=== PATIENT | female | born 1950 ===

== ENCOUNTER 2018-06-13 01:00 | Observation (INO) | payer MEDICARE, MEDICAID ==
[2018-06-13 01:01] VITALS: BMI 31.1
[2018-06-13] MEDS ORDERED: Ciprofloxacin 400mg/200ml D5W 400 MG/200 ML BAG IVPB STA (01:39)
[2018-06-13] MEDS ORDERED: metroNIDAZOLE 500mg/100ml NS 100 ML IVPB STA (01:40)
--- NOTE | 2018-06-13 02:06 | ED PDOC ---
HPI: Abdomen Time Seen by Provider: 06/13/18 01:07 Chief Complaint (Nursing): Abdominal Pain Chief Complaint (Provider): Abdominal Pain History Per: Patient History/Exam Limitations: no limitations Onset/Duration Of Symptoms: Days (x2) Additional Complaint(s): Patient is a 67 y/o female with history of dementia, anxiety, hypercholesterolemia, HTN, diabetes, who presents to the ED complaining of abdominal pain, onset x2 days ago. Patient states the she went to [facility] and was diagnosed with diverticulitis but she left because she didn't like the care at that location prompting her visit here. Patient describes pain to be located in the left lower quadrant and states its intermittent. She reports that the pain has gotten better since onset and is only mild currently. Patient also reports she had bloody stool on Thursday but no bloody stool today. She denies shortness of breath, chest pain, fever, vomiting. She was given antibiotics for her diagnosis of diverticulitis but she states she is not currently taking any medications. Past Medical History Reviewed: Historical Data, Nursing Documentation, Vital Signs Vital Signs: Last Vital Signs Temp 99.1 F 06/14/18 08:13 Pulse 74 06/14/18 10:01 Resp 18 06/14/18 08:13 BP 163/74 H 06/14/18 10:01 Pulse Ox 95 06/14/18 08:13 - Medical History PMH: Anxiety, Arthritis, Depression, Diabetes (type II), Diverticulitis, Fractures, Graves' Disease, HTN, Hypercholesterolemia Denies: Chronic Kidney Disease - Surgical History Other surgeries: ectopic - Family History Family History: States: Unknown Family Hx - Social History Current smoker - smoking cessation education provided: No Alcohol: None Drugs: Denies - Immunization History Hx Tetanus Toxoid Vaccination: No Hx Influenza Vaccination: No Hx Pneumococcal Vaccination: No - Home Medications Home Medications: Ambulatory Orders Medication Instructions Recorded Acetaminophen/Cod NO 4 1 tab PO Q6H PRN 06/11/18 [Tylenol/Cod 300 mg-60 mg] Dextran 70/Hypromellose 15 ml OP BID 06/11/18 [Artificial Tears Eye Drops] Donepezil HCl [Aricept] 10 mg PO DAILY 06/11/18 Gabapentin 300 mg PO TID 06/11/18 Gabapentin [Neurontin] 800 mg PO HS 06/11/18 metFORMIN [glucOPHAGE] 1,000 mg PO BIDWM 06/11/18 Clonazepam [Klonopin] 0.5 mg PO BID 06/13/18 Lisinopril/Hydrochlorothiazide 1 tab PO DAILY 06/13/18 [Lisinopril-Hctz 20-25 mg Tab] Metoprolol Succinate [Toprol Xl] 50 mg PO DAILY 06/13/18 Polyethylene Glycol/Polyvinyl 1 drop OU PRN PRN 06/13/18 [Artificial Tears] Pravastatin Sodium [Pravachol] 20 mg PO DAILY 06/13/18 - Allergies Allergies/Adverse Reactions: Allergies Allergy/AdvReac Type Severity Reaction Status Date / Time No Known Allergies Allergy Verified 06/13/18 01:02 Review of Systems ROS Statement: Except As Marked, All Systems Reviewed And Found Negative Constitutional: Negative for: Fever Cardiovascular: Negative for: Chest Pain Respiratory: Negative for: Shortness of Breath Gastrointestinal: Positive for: Abdominal Pain. Negative for: Vomiting Physical Exam - Reviewed Nursing Documentation Reviewed: Yes Vital Signs Reviewed: Yes - Physical Exam Appears: Positive for: Non-toxic, No Acute Distress Head Exam: Positive for: ATRAUMATIC, NORMOCEPHALIC Skin: Positive for: Normal Color, Warm, Dry Eye Exam: Positive for: EOMI, Normal appearance, PERRL Neck: Positive for: Normal, Painless ROM Cardiovascular/Chest: Positive for: Regular Rate, Rhythm. Negative for: Murmur Respiratory: Positive for: Normal Breath Sounds. Negative for: Respiratory Distress Gastrointestinal/Abdominal: Positive for: Tenderness (mild LLQ) Back: Positive for: Normal Inspection Extremity: Positive for: Normal ROM. Negative for: Pedal Edema, Deformity Neurologic/Psych: Positive for: Alert, Oriented. Negative for: Motor/Sensory Deficits - Laboratory Results Result Diagrams: 06/13/18 03:10 06/13/18 03:10 - ECG O2 Sat by Pulse Oximetry: 93 (RA) Pulse Ox Interpretation: Abnormal Medical Decision Making Medical Decision Making: Time: 01:39 Initial Impression: Diverticulitis and colitis Initial Plan: --BMP --ED urine dipstick --CBC w/ diff --Cipro --Flagyl Time: 08:36 on 06/11/18 CT Abdomen and Pelvis FINDINGS: LOWER THORAX: Limited due to motion and misregistration artifacts. Hazy ground-glass opacity to the lungs with hyperlucency. Correlation with patient's clinical history of reactive airways disease is recommended. 7 millimeter nodular density within the medial aspect of the right lower lobe. LIVER: Enlarged fatty nodular liver. GALLBLADDER AND BILE DUCTS: Cholelithiasis. Gallbladder wall prominence. Correlation with right upper quadrant abdominal ultrasound may be helpful if clinically indicated. PANCREAS: Fatty infiltration of the pancreas. SPLEEN: Unremarkable. ADRENALS: Mild nodular thickening of the right adrenal gland. Persistent 2.8 x 1.8 centimeter low-attenuation lesion in the left adrenal gland demonstrating a Hounsfield unit attenuation postcontrast of 55, indeterminate. Correlation with multiphasic CT or MR may be helpful for further evaluation if clinically indicated. KIDNEYS AND URETERS: Unremarkable. No hydronephrosis. No solid mass. VASCULATURE: Calcified plaque in the aorta. Aorta is mildly ectatic but normal in caliber. BOWEL: Diverticulosis. Thickening of the splenic flexure and left hemicolon with pericolonic inflammation and possible left upper quadrant diverticulosis suggestive for an infectious and or inflammatory colitis/ diverticulitis. Clinical correlation. APPENDIX: No findings to suggest acute appendicitis. PERITONEUM: Unremarkable. No free fluid. No free air. LYMPH NODES: Unremarkable. No enlarged lymph nodes. BLADDER: Partially decompressed urinary bladder with bladder wall thickening. Correlation with urinalysis is recommended only if clinical cystitis is suspected. REPRODUCTIVE: Unremarkable. BONES: No acute fracture. OTHER FINDINGS: Clip slow transit. IMPRESSION: Thickening of the splenic flexure and left hemicolon with pericolonic inflammation and possible left upper quadrant diverticulosis is suggestive for an infectious and/or inflammatory colitis/ diverticulitis. Clinical correlation. Posttreatment interval followup is recommended to ensure resolution and exclude underlying lesion. Cholelithiasis with gallbladder wall prominence. If clinically warranted, a right upper quadrant abdominal ultrasound may be helpful for further evaluation. Persistent 2.8 x 1.8 centimeter low-attenuation lesion in the left adrenal gland demonstrating a Hounsfield unit attenuation postcontrast of 55, indeterminate. Correlation with multiphasic CT or MR may be helpful for further evaluation if clinically indicated. Additional findings as above. Scribe Attestation: Documented by Ramone Trevizo acting as a scribe for Luis Michel MD. Provider Scribe Attestation: All medical record entries made by the Scribe were at my direction and personally dictated by me. I have reviewed the chart and agree that the record accurately reflects my personal performance of the history, physical exam, medical decision making, and the department course for this patient. I have also personally directed, reviewed, and agree with the discharge instructions and disposition. Disposition - Clinical Impression Clinical Impression: Diverticulitis, Cholelithiasis - Patient ED Disposition Is Patient to be Admitted: Yes Discussed With : Tristin Hoskins Doctor Will See Patient In The: Hospital Counseled Patient/Family Regarding: Studies Performed, Diagnosis - Disposition Disposition Time: 02:00 Condition: FAIR - Pt Status Changed To: Hospital Disposition Of: Observation - POA Present On Arrival: None
[2018-06-13] MEDS ORDERED: Ciprofloxacin 400mg/200ml D5W 400 MG/200 ML BAG IVPB ONE (03:07)
[2018-06-13] MEDS ORDERED: metroNIDAZOLE 500mg/100ml NS 100 ML IVPB ONE (03:07)
[2018-06-13 03:19] LABS: BASO % 0.5 % (0.0-2.0); EOS # 0.2 K/uL (0.0-0.7); EOS % 3.7 % (0.0-4.0); HEMOGLOBIN 12.3 g/dL (12.0-16.0); LYMPH # 2.2 K/uL (1.0-4.3); LYMPH % 32.1 % (20.0-40.0); MEAN CELL VOLUME 84.2 fl (81.0-99.0); MEAN CORPUSCULAR HEMOGLOBIN 28.5 pg (27.0-31.0); MEAN CORPUSCULAR HGB CONC 33.8 g/dL (33.0-37.0); MEAN PLATELET VOLUME 9.9 fl (7.2-11.7); MONO # 0.4 K/uL (0.0-0.8); MONO % 5.5 % (0.0-10.0); NEUT # 3.9 K/uL (1.8-7.0); NEUT % 58.2 % (50.0-75.0); RBC 4.32 Mil/uL (3.80-5.20); RED CELL DISTRIBUTION WIDTH 13.6 % (11.5-14.5); WHITE BLOOD COUNT 6.8 K/uL (4.8-10.8)
[2018-06-13 03:31] LABS: BLOOD UREA NITROGEN 9 mg/dl (7-17); CALCIUM 9.6 mg/dL (8.4-10.2); GFR NON-AFRICAN AMERICAN > 60
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
[2018-06-13] MEDS: Dextrose 5%/Lactated Ringer's 1,000 ML IV SCH (18:30)
[2018-06-13] MEDS: metroNIDAZOLE 500mg/100ml NS 100 ML IVPB SCH (18:41)
[2018-06-13] MEDS: Metoprolol Succinate 50 mg XL Tab PO SCH (18:44)
[2018-06-13] MEDS: Ciprofloxacin 400mg/200ml D5W 400 MG/200 ML BAG IVPB SCH (21:39)
[2018-06-13] MEDS: Insulin Regular 100 units/ml SC SCH (22:00)
[2018-06-14] MEDS: metroNIDAZOLE 500mg/100ml NS 100 ML IVPB SCH ×3 (00:02→10:02)
[2018-06-14] MEDS: Insulin Regular 100 units/ml SC SCH ×4 (06:52→21:17)
[2018-06-14] MEDS: Dextrose 5%/Lactated Ringer's 1,000 ML IV SCH (07:00)
[2018-06-14] MEDS ORDERED: Patient's Own Med (Lisinopril/Hydrochlorothiazide [Lisinopril-Hctz 20-25 Mg Tab] 1 TAB) PO SCH (09:00)
--- NOTE | 2018-06-14 09:15 | CP.PCM.PN ---
Subjective - Date & Time of Evaluation Date of Evaluation: 06/14/18 Time of Evaluation: 07:00 - Subjective Subjective: PGY5 GI Follow-up Pt seen and examined bedside Stil has LLQ abd pain, but improved slightly improved appetite complaining of anxiety and lack of sleep still has diarrhea, last night ROS: 12 point ROS conducted neg other than above Objective - Vital Signs/Intake and Output Vital Signs (last 24 hours): Temp Pulse Resp BP Pulse Ox 99.1 F 74 18 163/74 H 95 06/14/18 08:13 06/14/18 08:13 06/14/18 08:13 06/14/18 08:13 06/14/18 08:13 - Medications Medications: Current Medications Clonazepam (Klonopin) 0.5 mg PO BID [facility] Last Admin: 06/13/18 18:47 Dose: 0.5 mg Hydrochlorothiazide (Hydrodiuril) 25 mg PO DAILY [facility] Last Admin: 06/13/18 18:51 Dose: 25 mg Ciprofloxacin (Cipro 400mg/200ml Dsw) 400 mg in 200 mls @ 200 mls/hr IVPB Q12 MASHA PRN Reason: Protocol Last Admin: 06/13/18 21:39 Dose: 200 mls/hr Metronidazole (Flagyl 500mg/100ml Ns) 100 mls @ 100 mls/hr IVPB Q8 MASHA PRN Reason: Protocol Last Admin: 06/14/18 00:02 Dose: 100 mls/hr Dextrose/Lactated Ringer's (Dextrose 5%/Lactated Ringer's) 1,000 mls @ 80 mls/ hr IV .[id number] [facility] Stop: 06/14/18 18:24 Last Admin: 06/14/18 07:00 Dose: Not Given Insulin Human Regular (Humulin R) 0 units SC ACHS MASHA PRN Reason: Protocol Last Admin: 06/14/18 06:52 Dose: Not Given Lisinopril (Zestril) 20 mg PO DAILY [facility] Last Admin: 06/13/18 18:51 Dose: 20 mg Metoprolol Succinate (Toprol Xl) 50 mg PO DAILY [facility] Last Admin: 06/13/18 18:44 Dose: 50 mg Pantoprazole Sodium (Protonix Inj) 40 mg IVP DAILY [facility] - Labs Labs: 06/13/18 03:10 06/13/18 03:10 - Constitutional Appears: Well, No Acute Distress - Head Exam Head Exam: ATRAUMATIC, NORMOCEPHALIC - Eye Exam Eye Exam: Normal appearance - ENT Exam ENT Exam: Mucous Membranes Moist, Normal Exam - Neck Exam Neck Exam: Normal Inspection - Respiratory Exam Respiratory Exam: Clear to Ausculation Bilateral, NORMAL BREATHING PATTERN. absent: Decreased Breath Sounds, Rales, Wheezes, Respiratory Distress - Cardiovascular Exam Cardiovascular Exam: REGULAR RHYTHM, +S1, +S2 - GI/Abdominal Exam GI & Abdominal Exam: Soft, Tenderness (LLQ), Normal Bowel Sounds - Extremities Exam Extremities Exam: absent: Joint Swelling, Pedal Edema - Neurological Exam Neurological Exam: Alert, Awake, Oriented x3 - Psychiatric Exam Psychiatric exam: Normal Affect, Normal Mood - Skin Skin Exam: Dry, Intact, Normal Color, Warm Assessment and Plan - Assessment and Plan (Free Text) Assessment: Danuta Silva is a 67F w/ h xof DM, HTN, anxiety who presentd with LLQ abd pain Uncomplicated diverticulitis Diarrhea, etiology: r/o infectious, DDx: overflow diarrhea hx of constipation Abdominal pain - CT imaging reviewed by me showing left sided colonic wall thickening with associated diverticular disease, suggestive of - continue Full liquid diet as tolerated - Continue with antibiotic therapy - Anti-emetic therapy PRN - Patient would benefit from outpatient elective colonoscopy 6-8 weeks following resolution of acute symptoms. - will send for c.diff and stool culture -anxiety management as per Primary team Will D/W Dr. Barba
[2018-06-14] MEDS: Ciprofloxacin 400mg/200ml D5W 400 MG/200 ML BAG IVPB SCH ×2 (09:52→10:02)
[2018-06-14] MEDS: Metoprolol Succinate 50 mg XL Tab PO SCH (09:54)
[2018-06-14 15:42] VITALS: O2SAT 97
[2018-06-15 07:54] VITALS: BP 157/78; PULSE 79; RESP 19; TEMP 99.6
--- NOTE | 2018-06-15 09:08 | CP.PCM.PN ---
<Stanford Israel - Last Filed: 06/15/18 09:06> Subjective - Date & Time of Evaluation Date of Evaluation: 06/15/18 Time of Evaluation: 09:06 - Subjective Subjective: GI Fellow PGY4 progress note. Patient seen and examined at bedside. No acute overnight events. She says her diarrhea is improving. She states she is not hungry but denies nausea, vomiting. She has not eaten her breakfast, but requesting to go home and she will eat there. Her abdominal pain is improving as well. She complains of being nervous. 5pt ROS completed and neg except for above. Objective - Vital Signs/Intake and Output Vital Signs (last 24 hours): Temp Pulse Resp BP Pulse Ox 99.6 F 79 19 157/78 H 97 06/15/18 07:53 06/15/18 07:53 06/15/18 07:53 06/15/18 07:53 06/15/18 07:53 - Medications Medications: Current Medications Ciprofloxacin (Cipro) 500 mg PO Q12 MASHA PRN Reason: Protocol Last Admin: 06/14/18 21:01 Dose: 500 mg Clonazepam (Klonopin) 0.5 mg PO BID [facility] Last Admin: 06/14/18 21:01 Dose: 0.5 mg Hydrochlorothiazide (Hydrodiuril) 25 mg PO DAILY [facility] Last Admin: 06/14/18 09:53 Dose: 25 mg Insulin Human Regular (Humulin R) 0 units SC ACHS MASHA PRN Reason: Protocol Last Admin: 06/14/18 21:17 Dose: Not Given Lisinopril (Zestril) 20 mg PO DAILY [facility] Last Admin: 06/14/18 10:01 Dose: 20 mg Metoprolol Succinate (Toprol Xl) 50 mg PO DAILY [facility] Last Admin: 06/14/18 09:54 Dose: 50 mg Metronidazole (Flagyl) 500 mg PO Q8 MASHA PRN Reason: Protocol Last Admin: 06/15/18 00:10 Dose: 500 mg Pantoprazole Sodium (Protonix Inj) 40 mg IVP DAILY [facility] Last Admin: 06/14/18 09:53 Dose: 40 mg - Labs Labs: 06/13/18 03:10 06/13/18 03:10 - Constitutional Appears: Non-toxic, No Acute Distress - Head Exam Head Exam: ATRAUMATIC, NORMAL INSPECTION - Eye Exam Eye Exam: Normal appearance - ENT Exam ENT Exam: Normal Exam - Respiratory Exam Respiratory Exam: Clear to Ausculation Bilateral, NORMAL BREATHING PATTERN. absent: Wheezes - Cardiovascular Exam Cardiovascular Exam: +S1 - GI/Abdominal Exam GI & Abdominal Exam: Soft, Normal Bowel Sounds. absent: Tenderness - Extremities Exam Extremities Exam: Full ROM, Normal Inspection - Neurological Exam Neurological Exam: Alert, Awake, Oriented x3 - Psychiatric Exam Psychiatric exam: Normal Affect, Normal Mood - Skin Skin Exam: Dry, Normal Color Assessment and Plan - Assessment and Plan (Free Text) Assessment: Danuta Silva is a 67F w/ h xof DM, HTN, anxiety who presentd with LLQ abd pain Uncomplicated diverticulitis Diarrhea, etiology: r/o infectious, DDx: overflow diarrhea hx of constipation Abdominal pain - CT imaging reviewed by me showing left sided colonic wall thickening with associated diverticular disease - Low residue diet recommended x 4 weeks. - Continue with antibiotic therapy - Anti-emetic therapy PRN - Patient would benefit from outpatient elective colonoscopy 6-8 weeks following resolution of acute symptoms. -anxiety management as per Primary team <Maddie Barba - Last Filed: 06/15/18 13:24> Objective - Vital Signs/Intake and Output Vital Signs (last 24 hours): Temp Pulse Resp BP Pulse Ox 99.6 F 79 19 157/78 H 97 06/15/18 07:53 06/15/18 09:18 06/15/18 07:53 06/15/18 09:18 06/15/18 07:53 - Labs Labs: 06/13/18 03:10 06/13/18 03:10 Attending/Attestation - Attestation I have personally seen and examined this patient.: Yes I have fully participated in the care of the patient.: Yes I have reviewed all pertinent clinical information, including history, physical exam and plan: Yes Notes (Text): 06/15/18 13:22 67 yr old F w/ h xof DM, HTN, anxiety who presentd with LLQ abd pain and uncomplicated diverticulitis now resolving. Continue 10 day antibiotic Rx po and get colonoscopy in 6 weeks
[2018-06-15] MEDS: Metoprolol Succinate 50 mg XL Tab PO SCH (09:17)
[2018-06-15] MEDS: Insulin Regular 100 units/ml SC SCH (09:19)
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
--- NOTE | 2018-06-15 09:40 | CP.PCM.PN ---
Subjective - Date & Time of Evaluation Date of Evaluation: 06/14/18 Time of Evaluation: 11:00 - Subjective Subjective: Patient tolerated liquids. Objective - Vital Signs/Intake and Output Vital Signs (last 24 hours): Temp Pulse Resp BP Pulse Ox 99.6 F 79 19 157/78 H 97 06/15/18 07:53 06/15/18 09:18 06/15/18 07:53 06/15/18 09:18 06/15/18 07:53 - Medications Medications: Current Medications Ciprofloxacin (Cipro) 500 mg PO Q12 [facility] PRN Reason: Protocol Last Admin: 06/15/18 09:17 Dose: 500 mg Clonazepam (Klonopin) 0.5 mg PO BID [facility] Last Admin: 06/15/18 09:24 Dose: 0.5 mg Hydrochlorothiazide (Hydrodiuril) 25 mg PO DAILY [facility] Last Admin: 06/15/18 09:24 Dose: 25 mg Insulin Human Regular (Humulin R) 0 units SC ACHS [facility] PRN Reason: Protocol Last Admin: 06/15/18 09:19 Dose: Not Given Lisinopril (Zestril) 20 mg PO DAILY [facility] Last Admin: 06/15/18 09:18 Dose: 20 mg Metoprolol Succinate (Toprol Xl) 50 mg PO DAILY [facility] Last Admin: 06/15/18 09:17 Dose: 50 mg Metronidazole (Flagyl) 500 mg PO Q8 [facility] PRN Reason: Protocol Last Admin: 06/15/18 09:17 Dose: 500 mg Pantoprazole Sodium (Protonix Inj) 40 mg IVP DAILY [facility] Last Admin: 06/15/18 09:18 Dose: 40 mg - Labs Labs: 06/13/18 03:10 06/13/18 03:10
--- NOTE | 2018-06-15 09:41 | CP.PCM.DIS ---
Provider - Provider Date of Admission: 06/13/18 05:32 Attending physician: Tristin Hoskins MD Hospital Course - Lab Results Lab Results: Most Recent Lab Values WBC 6.8 K/uL (4.8-10.8) 06/13/18 03:10 RBC 4.32 Mil/uL (3.80-5.20) 06/13/18 03:10 Hgb 12.3 g/dL (12.0-16.0) 06/13/18 03:10 Hct 36.4 % (34.0-47.0) 06/13/18 03:10 MCV 84.2 fl (81.0-99.0) 06/13/18 03:10 MCH 28.5 pg (27.0-31.0) 06/13/18 03:10 MCHC 33.8 g/dL (33.0-37.0) 06/13/18 03:10 RDW 13.6 % (11.5-14.5) 06/13/18 03:10 Plt Count 197 K/uL (130-400) 06/13/18 03:10 MPV 9.9 fl (7.2-11.7) 06/13/18 03:10 Neut % (Auto) 58.2 % (50.0-75.0) 06/13/18 03:10 Lymph % (Auto) 32.1 % (20.0-40.0) 06/13/18 03:10 [place] % (Auto) 5.5 % (0.0-10.0) 06/13/18 03:10 Eos % (Auto) 3.7 % (0.0-4.0) 06/13/18 03:10 Baso % (Auto) 0.5 % (0.0-2.0) 06/13/18 03:10 Neut # (Auto) 3.9 K/uL (1.8-7.0) 06/13/18 03:10 Lymph # (Auto) 2.2 K/uL (1.0-4.3) 06/13/18 03:10 [place] # (Auto) 0.4 K/uL (0.0-0.8) 06/13/18 03:10 Eos # (Auto) 0.2 K/uL (0.0-0.7) 06/13/18 03:10 Baso # (Auto) 0.0 K/uL (0.0-0.2) 06/13/18 03:10 Sodium 142 mmol/l (132-148) 06/13/18 03:10 Potassium 4.2 MMOL/L (3.6-5.0) 06/13/18 03:10 Chloride 108 mmol/L (98-107) H 06/13/18 03:10 Carbon Dioxide 26 mmol/L (22-30) 06/13/18 03:10 Anion Gap 12 (10-20) 06/13/18 03:10 BUN 9 mg/dl (7-17) 06/13/18 03:10 Creatinine 0.8 mg/dl (0.7-1.2) 06/13/18 03:10 Est GFR ( Amer) > 60 06/13/18 03:10 Est GFR (Non-Af Amer) > 60 06/13/18 03:10 POC Glucose (mg/dL) 153 mg/dL (65-110) H 06/15/18 05:16 Random Glucose 116 mg/dL (65-105) H 06/13/18 03:10 Calcium 9.6 mg/dL (8.4-10.2) 06/13/18 03:10 - Hospital Course Hospital Course: This is a 67 y/o female admitted for diverticulitis., Patient was placed on Iv antibiootics then started on clear liquids. Discharge Exam - Head Exam Head Exam: ATRAUMATIC, NORMAL INSPECTION Discharge Plan - Follow Up Plan Condition: FAIR Disposition: HOME/ ROUTINE Instructions: Low Fiber Diet, Diverticulitis (DC) Additional Instructions: hacer ke con becerra primario dentro de 1 semana Referrals: Maddie Barba MD [Medical Doctor] - Luana Eli MD [Family Provider] -
== END 2018-06-15 12:30 | disposition home or self-care (01) ==
LOC: H.ER 01:00 → H.ERHOLD 05:32 → H.MEDSURG1 17:20
PROVIDERS: ADMIT Family Medicine; ATTEND Family Medicine
DX: K57.92 Diverticulitis of intestine, part unspecified, without perforation or abscess without bleeding (principal); F03.90 Unspecified dementia, unspecified severity, without behavioral disturbance, psychotic disturbance, mood disturbance, and anxiety; F41.9 Anxiety disorder, unspecified; E78.00 Pure hypercholesterolemia, unspecified; I10 Essential (primary) hypertension; E11.9 Type 2 diabetes mellitus without complications; M19.90 Unspecified osteoarthritis, unspecified site; F32.9 Major depressive disorder, single episode, unspecified; E05.00 Thyrotoxicosis with diffuse goiter without thyrotoxic crisis or storm; E66.9 Obesity, unspecified; Z68.41 Body mass index [BMI] 40.0-44.9, adult; K59.00 Constipation, unspecified
CPT/HCPCS: 80048; 82948; 85025; 87045; 87230; 96365; 99284; C9113; G0378; J0744; J7120